=== PATIENT | male | born 1975 | race Caucasian/White ===

== ENCOUNTER 2023-06-27 11:10 | Emergency (ER) | payer OTHER ==
[~2023-06-27] VITALS: Ht 157.5 cm; Wt 81.6 kg
[2023-06-27 11:29] VITALS: BP_SYST 116; BP_SYST 141; BP_DIAS 74; BP_DIAS 91; PULSE 124; PULSE 16; RESP 18; TEMP 101.3; TEMP 97.9; O2SAT 98; O2SAT 99
[2023-06-27] MEDS: IBUPROFEN 600 MG TAB PO ONE (13:11)
[2023-06-27] MEDS: HYDROcodone/APAP 5/325 MG 1 TAB TAB PO ONE (13:26)
[2023-06-27] MEDS ORDERED: NAPR-54 PO (14:59)
[2023-06-27 15:34] VITALS: BP 116/74; PULSE 16; RESP 18; TEMP 97.9; O2SAT 98
[2023-06-27] MEDS: KETOROLAC 30 MG/ML VIAL IM ONE (15:34)
== END 2023-06-27 15:34 | disposition home or self-care (01) ==
LOC: MED 11:10
DX: M25.461 Effusion, right knee (principal); Z88.0 Allergy status to penicillin; Z79.899 Other long term (current) drug therapy
CPT/HCPCS: 29505; 73502; 73562; 96372; 99284; J1885